=== PATIENT | female | born 1945 | race Caucasian/White ===

== ENCOUNTER 2016-11-24 14:23 | Emergency (ER) | payer OTHER ==
[~2016-11-24] VITALS: Ht 162.6 cm; Wt 131.5 kg
--- NOTE | 2016-11-24 14:29 | ED AMS/SEIZURE/WEAK/DIZZY ---
History of Present Illness General Chief Complaint: General Adult Stated Complaint: BIBA INCREASED WEAKNESS, "SHAKING" Source: patient, family Exam Limitations: no limitations Vital Signs & Intake/Output Vital Signs & Intake/Output Vital Signs Date Time Temp Pulse Resp B/P B/P Pulse O2 O2 Flow FiO2 Mean Ox Delivery Rate 11/25 1955 98.9 95 18 170/85 96 Room Air 11/24 1438 96 Room Air 11/24 1436 98.2 92 18 161/83 96 Room Air ED Intake and Output 11/25 0000 11/24 1200 Intake Total Output Total Balance Patient 290 lb Weight Weight Reported by Patient Measurement Method Allergies Coded Allergies: morphine (Severe, "BRAIN GOES MISSING" 11/24/16) oxycodone (Severe, "BRAIN GOES MISSING" 11/24/16) Reconcile Medications Aspirin (Ecotrin*) 81 MG TABLET.DR 1 TAB PO DAILY HEART/BLOOD (Reported) Furosemide 40 MG TABLET 0.25-0.5 TAB PO DAILY DIURETIC (Reported) Gabapentin 600 MG TABLET 1 TAB PO 4XDAILY NERVE PAIN (Reported) Glipizide (Unknown Strength) TABLET (Unknown Dose) PO TID DM (Reported) Ramipril 10 MG CAPSULE 1 CAP PO BID BP (Reported) Sulfamethoxazole/Trimethoprim (Bactrim Ds Tablet) 800 MG-160 MG TABLET 1 TAB PO BID UTI Tramadol HCl 50 MG TABLET 2 TAB PO TID PAIN (Reported) Zolpidem Tartrate 10 MG TABLET 1 TAB PO QPM SLEEP (Reported) Triage Nurses Notes Reviewed? yes Duration: day(s): (2) Timing: recent history Injury Environment: home Severity: mild No Modifying Factors: none Associated Symptoms: POOR PO, NAUSEA WEAKNESS, URINARY FREQUENCY HPI: Is a 71-year-old female with history of type 2 diabetes, hypertension, morbid obesity presents via with her son for chief complaint of 2 days of not feeling well. She's been having shakes and chills at home. Positive nausea but no vomiting. Diminished appetite. She states that she hasn't been feeling herself. She was very flushed today and thinks that she may have had a low- grade fever but no fever was measured at home. On Wednesday she was fine and was doing some planting outside with her son. Denies any abdominal pain or diarrhea. Denies any urinary symptoms currently but states that she's had urinary symptoms in the past. For this she generally drinks cranberry juice and the symptoms go away. Past History Travel History Traveled to [place] past 21 day No Medical History Any Pertinent Medical History? see below for history Cardiovascular: hypertension, AORTIC VALVE REPLACEMENT Endocrine: diabetes Cancer(s): COLON CA History of MRSA: Yes History of CDIFF: No Surgical History Surgical History: AV REPLACEMENT Psychosocial History Who do you live with Patient/Self Services at Home None What is your primary language Vietnamese Family History Family History, If Any: FATHER Relation not specified for: FH: coronary artery disease FH: diabetes mellitus FHx: throat cancer Hx Contributory? No Review of Systems Review of Systems Constitutional: Reports: chills, weakness. EENTM: Reports: no symptoms. Respiratory: Denies: cough, short of breath. Cardiovascular: Denies: chest pain, palpitations. GI: Reports: nausea. Denies: abdominal pain, diarrhea, vomiting. Genitourinary: Reports: dysuria, frequency. Musculoskeletal: Denies: joint pain, joint swelling, muscle pain, muscle stiffness. Skin: Reports: no symptoms. Neurological/Psychological: Reports: no symptoms. Hematologic/Endocrine: Denies: bruising, bleeding. Immunologic/Allergic: Denies: splenectomy. All Other Systems: Reviewed and Negative Physical Exam Physical Exam General Appearance: well developed/nourished, alert, awake, mild distress, obese Head: atraumatic, normal appearance Eyes: Bilateral: normal appearance, PERRL, EOMI. Ears, Nose, Throat: normal pharynx, normal ENT inspection Neck: normal inspection, supple, JVD Respiratory: normal breath sounds, chest non-tender, no respiratory distress Cardiovascular: regular rate/rhythm Peripheral Pulses: 2+ radial (R), 2+ radial (L) Gastrointestinal: soft, non-tender, OBESE Back: normal inspection, normal range of motion Extremities: normal range of motion Neurologic/Psych: no motor/sensory deficits, awake, alert, oriented x 3 Skin: intact, normal color, warm/dry Core Measures ACS in differential dx? Yes ASA ordered for poss ACS? No-ACS ruled out CVA/TIA Diagnosis: No Severe Sepsis Present: No Septic Shock Present: No Progress Differential Diagnosis: sepsis, UTI/pyelo, BACTEREMIA Plan of Care: Orders Procedure Date/time Status Consistent Carbohydrate 1 11/25 B Active LACTIC ACID 11/24 1729 Complete CULTURE,URINE 11/24 1541 Active Straight Cath 11/24 1502 Complete BLOOD CULTURE 11/24 1502 Active URINALYSIS 11/24 1502 Complete TROPONIN LEVEL 11/24 1429 Complete LACTIC ACID 11/24 1429 Complete COMPREHENSIVE METABOLIC PANEL 11/24 142 Complete CBC WITHOUT DIFFERENTIAL 11/24 1428 Complete EKG 11/24 1428 Active Laboratory Tests 11/24/16 1735: Lactic Acid 1.7 11/24/16 1543: Urine Color YEL, Urine Clarity CLEAR, Urine pH 6.0, Ur Specific [place] 1.025, Urine Protein 100 H, Urine Ketones TRACE H, Urine Nitrite NEG, Urine Bilirubin NEG, Urine Urobilinogen 0.2, Ur Leukocyte Esterase LARGE H, Ur Microscopic SEDIMENT EXAMINED, Urine RBC 5-10 H, Urine WBC PACKD H, Ur Epithelial Cells MOD H, Urine Bacteria FEW H, Urine Hemoglobin NEG, Urine Glucose NEG 11/24/16 1510: Anion Gap 13, Estimated GFR > 60, BUN/Creatinine Ratio 28.8 H, Glucose 262 H, Lactic Acid 2.7 H, Calcium 9.4, Total Bilirubin 0.8, AST 30, ALT 41, Alkaline Phosphatase 113, Troponin I 0.04, Total Protein 6.8, Albumin 4.2, Globulin 2.6, Albumin/Globulin Ratio 1.6, CBC w Diff NO MAN DIFF REQ, RBC 4.41, MCV 91.0, MCH 30.4, RDW 13.1, MPV 8.1, Gran % 87.8 H, Lymphocytes % 7.8 L, Monocytes % 4.3, Eosinophils % 0.1, Basophils % 0 L, Absolute Granulocytes 6.8 H, Absolute Lymphocytes 0.6 L, Absolute Monocytes 0.3, Absolute Eosinophils 0, Absolute Basophils 0, PUBS MCHC 33.4 Microbiology 11/24 1545 BLOOD: Blood Culture - RES 11/24 1543 URINE ROUT: Urine Culture - RES GRAM NEGATIVE RODS 11/24 1530 BLOOD: Blood Culture - RES 11/24 1502 URINE ROUT: Urine Culture - CAN Cancelled: Cancelled via OE: NOT REQUIRED PATIENT FEELS SLIGHTLY IMPROVED AFTER IV FLUIDS. LABS WNL. URINALYSIS POSITIVE FOR UTI. PATIENT WITH URINARY SYMPTOMS. WILL TREAT WITH UTI. IV ABX ORDERED. (ARMEN WU,DARION) Diagnostic Imaging: Viewed by Me: Radiology Read. Discussed w/RAD: Radiology Read. CXR Impression: no acute abnormality Initial ED EKG: NSR, LBBB (INCL), LVH Departure Departure Time of Disposition: 1917 Disposition: HOME OR SELF CARE Condition: Stable Clinical Impression Primary Impression: UTI (urinary tract infection) Secondary Impressions: Dehydration Referrals: ALEK WU,AMISHA Garcia (PCP/Family) Additional Instructions: drink plenty of fluids take the antibiotics as directed follow up with your doctor in the office return as needed Departure Forms: Customer Survey General Discharge Information Prescriptions: Current Visit Scripts Sulfamethoxazole/Trimethoprim (Bactrim Ds Tablet) 1 TAB PO BID #20 TAB
[2016-11-24] MEDS ORDERED: TRAMADOL HCL50 M1 PO (15:21)
[2016-11-24] MEDS ORDERED: GLIPIZIDE5 M2 PO (15:22)
[2016-11-24] MEDS ORDERED: FUROSEMIDE40 M1 PO (15:22)
[2016-11-24] MEDS ORDERED: RAMIPRIL10 M1 PO (15:23)
[2016-11-24] MEDS ORDERED: ZOLPIDEM TARTRA10 M1 PO (15:23)
[2016-11-24] MEDS ORDERED: GABAPENTIN600 M1 PO (15:24)
[2016-11-24] MEDS ORDERED: ASPIRIN EC81 M1 PO (15:24)
[2016-11-24 15:40] LABS: ABSOLUTE BASOPHIL COUNT 0 /CUMM (0.0-0.2); ABSOLUTE EOSINOPHIL COUNT 0 /CUMM (0.0-0.7); ABSOLUTE GRANULOCYTE CT 6.8 /CUMM (1.4-6.5); ABSOLUTE LYMPH COUNT 0.6 /CUMM (1.2-3.4); ABSOLUTE MONOCYTE COUNT 0.3 /CUMM (0.10-0.60); BASOPHIL % 0 % (0.0-2.0); EOSINOPHIL % 0.1 % (0-5); GRANULOCYTE % 87.8 % (42.2-75.2); HEMATOCRIT 40.2 % (37-47); MEAN CORPUSCULAR HGB 30.4 PG (27.0-31.0); MEAN CORPUSCULAR HGB CONC 33.4 G/DL (33.0-37.0); MEAN PLATELET VOLUME 8.1 FL (7.4-10.4); PLATELET COUNT 191 /CUMM (130-400); RBC DISTRIBUTION WIDTH 13.1 % (11.5-14.5); RED BLOOD CELL CT 4.41 /CUMM (4.20-5.40); WHITE BLOOD CELL COUNT 7.8 /CUMM (4.8-10.8)
--- NOTE | 2016-11-24 17:25 | RADIOLOGY REPORT ---
EXAMINATION: XR CHEST CLINICAL INFORMATION: Weakness. Chills. COMPARISON: None TECHNIQUE: 2 views of the chest were obtained. FINDINGS: Status post median sternotomy for cardiac valve replacement. Cardiac and the mediastinal contours are normal. There is no pulmonary vascular congestion. The lungs are clear. No pleural effusion. Multilevel degenerative change of dorsal spine with endplate spurs of vertebrae. Surgical clips in the upper abdomen. IMPRESSION: No acute abnormality the chest.
[2016-11-24] MEDS ORDERED: BACTRIM DS TAB1 EACH PO (19:19)
[2016-11-24 19:56] VITALS: BP 170/85
== END 2016-11-24 19:57 ==
LOC: ERH 14:23
PROVIDERS: Emergency Medicine
DX: N39.0 Urinary tract infection, site not specified (principal); E86.0 Dehydration; R11.0 Nausea
CPT/HCPCS: 81001; 87040; 87086; 93005; 93010; 96361; 96374; J0696; J7040